=== PATIENT | female | born 1990 | race Hispanic/Latino ===

== ENCOUNTER 2017-11-06 18:45 | Emergency (ER) | payer OTHER ==
[2017-11-06] MEDS ORDERED: BENZONATATE 100 MG CAPSULE PO ONE (19:43)
[2017-11-06 20:20] LABS: BASOPHILS % (AUTO) 0.8 % (0.0-5.0); EOSINOPHILS % (AUTO) 1.3 % (0.0-8.0); HEMATOCRIT 37.9 % (36-48); LYMPHOCYTES % (AUTO) 32.6 % (21.0-51.0); MEAN CORPUSCULAR HEMOGLOBIN 26.8 pg (27.0-33.0); MEAN CORPUSCULAR HGB CONC 33.6 g/dL (32.0-36.0); MEAN CORPUSCULAR VOLUME 79.9 fL (79-99); MONOCYTES % (AUTO) 4.9 % (3.0-13.0); NEUTROPHILS % (AUTO) 60.4 % (40.0-77.0); PLATELET COUNT (AUTO) 281 K/uL (130-400); RED BLOOD CELL COUNT(AUTO) 4.74 MIL/uL (4.00-5.50); RED CELL DISTRIBUTION WIDTH 13.8 % (11.0-15.5); WHITE BLOOD COUNT (AUTO) 9.7 K/uL (4.8-10.8)
[2017-11-06 20:27] LABS: CREATININE 0.7 mg/dL (0.5-1.5); POTASSIUM 3.8 mmol/L (3.5-5.1)
[2017-11-06] MEDS ORDERED: IOPAMIDOL-370 75 ML VIAL IV ONE (20:36)
== END 2017-11-06 22:30 | disposition home or self-care (01) ==
LOC: EDH 18:45
DX: H65.01 Acute serous otitis media, right ear (principal); R05 Cough
CPT/HCPCS: 36415; 71046; 71260; 80048; 81025; 85025; 87804 ×2; 99285; Q9967